=== PATIENT | female | born 1945 | race Caucasian/White ===

== ENCOUNTER 2018-01-07 18:17 | Inpatient (IN) | payer MEDICARE ==
[~2018-01-07] VITALS: Ht 175.3 cm; Wt 55.8 kg
[2018-01-07] MEDS ORDERED: MAGNESIUM HYDROXIDE 30 ML LIQUID UDC PO PRN (18:30)
[2018-01-07] MEDS ORDERED: Z GUARD REMEDY PASTE 57 GM TUBE TOP PRN (18:30)
--- NOTE | 2018-01-07 18:52 | NUR ---
PT RECEIVED [facility]. PT VITALS STABLE. ALL PHOTOS TAKEN. ENDORSING TO HEADER OPERATOR NURSE FOR THE ASSESSMENTS. CALLED MICHAEL FROM [facility] ABOUT MED RECON. STILL WAITING. MRSA SWAB DONE AND SENT. WILL ENDORSE TO HEADER OPERATOR NURSE.
[2018-01-07 19:30] VITALS: BP 105/58
--- NOTE | 2018-01-07 19:30 | NUR ---
PT IN ROOM ALERT AWAKE IN NO ACUTE DISTRESS. ABLE TO FOLLOW SIMPLE COMMANDS AND MAKE NEEDS KNOWN. DENIES PAIN FOR NOW BUT STATES SOME SLIGHT DISCOMFORT WHEN MOVING. SURGICAL DRESSING SITE TO RIGHT HIP INTACT WITH NO ACTIVE BLEEDING OR S/S OF INFECTION. PT'S OXYGEN SAT NOTED 94% BUT STATES NO SOB. ASSESSMENT COMPLETED AND PT MADE AWARE OF PLAN OF CARE. REMINDED PT TO REQUEST FOR ASSISTANCE WHEN NEEDED. WILL CONTINUE TO MONITOR. PERSONAL BELONGINGS DOCUMENTED. HOME MEDICATIONS IBUPROFEN AND PEPTO BISOMOL TO BE SENT TO PHARMACIST. DR SANTOYO MADE AWARE OF PRN PAIN MEDICATION NEEDED.
[2018-01-07] MEDS: OXYCODONE/APAP 5-325 MG TABLET PO PRN (23:17)
--- NOTE | 2018-01-07 23:30 | NUR ---
PT C/O OF SLIGHT SOB UPON EXERTION. OXYGEN SET AT 2L/MIN ADMINISTERED. WILL CONTINUE TO MONITOR.
--- NOTE | 2018-01-08 06:00 | NUR ---
PT IN ROOM ABLE TO SLEEP WITHOUT DIFFICULTY SINCE RECEIVING PERCOCET. AWARE TO INFORM STAFF FOR ASSISTANCE WHEN NEEDED. NO DRAINAGE NOTED TO AFFECTED SURGICAL SITE. WILL CONTINUE TO MONITOR. CALL LIGHT WITHIN REACH.
[2018-01-08 06:42] LABS: BASOPHILS % (AUTO) 0.3 % (0.0-2.0); EOSINOPHILS # (AUTO) 0.1 K/uL (0.0-0.7); LYMPHOCYTES # (AUTO) 1.3 K/uL (20.0-40.0); MONOCYTES # (AUTO) 0.9 K/uL (2.0-10.0)
[2018-01-08 06:46] LABS: EOSINOPHILS % (AUTO) 0.8 % (0.0-7.0); HEMATOCRIT 21.4 % (31.2-41.9); LYMPHOCYTES % (AUTO) 18.7 % (20.5-51.5); MEAN CORPUSCULAR HEMOGLOBIN 33.4 uug (24.7-32.8); MEAN CORPUSCULAR HGB CONC 35 g/dL (32.3-35.6); MEAN CORPUSCULAR VOLUME 96.3 fL (75.5-95.3); NEUTROPHILS # (AUTO) 4.9 K/uL (1.8-8.9); NEUTROPHILS % (AUTO) 68.2 % (38.5-71.5); PLATELET COUNT (AUTO) 136 K/uL (179-408); WHITE BLOOD COUNT (AUTO) 7.2 K/uL (3.8-11.8)
[2018-01-08 07:00] LABS: RED BLOOD CELL COUNT(AUTO) 2.22 MIL/uL (3.63-4.92)
[2018-01-08 07:03] LABS: HEMOGLOBIN 7.4 g/dL (10.9-14.3)
[2018-01-08 07:10] LABS: ALANINE AMINOTRANSFERASE 16 U/L (14-59); ALKALINE PHOSPHATASE 40 U/L (50-136); ASPARTATE AMINOTRANSFERASE 25 U/L (15-37); BILIRUBIN,TOTAL 0.5 mg/dL (0.2-1.0); CARBON DIOXIDE 27 mmol/L (21-32); CHLORIDE 102 mmol/L (98-107); CREATININE 1.2 mg/dL (0.6-1.3); GLUCOSE 96 mg/dL (74-106); MAGNESIUM 1.9 mg/dL (1.8-2.4); PHOSPHOROUS 4.2 mg/dL (2.5-4.9); POTASSIUM 4.4 mmol/L (3.5-5.1); TOTAL PROTEIN, SERUM 5.7 g/dL (6.4-8.2); UREA NITROGEN, BLOOD 34 mg/dL (7-18)
[2018-01-08 08:00] VITALS: BP 82/46
--- NOTE | 2018-01-08 08:14 | NUR ---
CRITICAL LAB CALLED IN FOLLOWS HEMOGLOBIN NOTED AT 7.4 AND HEMATOCRIT NOTED AT 21.4..MD CHARLES NOTIFIED WITH NO NEW ORDERS
[2018-01-08 09:00] VITALS: BP 89/54
--- NOTE | 2018-01-08 09:00 | NUR ---
Rechecked pt's BP: 89/54 80. Pt asymptomatic. Pt in bed awake. Mihaela breakfast. Denies pain at this time. Dr. Waters here and relayed pt's Hgb of 7.2 and BP. Per MD, pt is status post surgery and decreased Hgb is expected due to blood loss during surgery. No new orders at this time. Will continue to monitor pt.
[2018-01-08] MEDS: OXYCODONE/APAP 5-325 MG TABLET PO PRN (10:34)
--- NOTE | 2018-01-08 14:00 | NUR ---
BP: 89/56 79. Pt in no acute distress noted. Denies pain. Denies SOB. Pt sitting up in w/c. Just finished with PT. Mihaela first treatment well. Per Mesha, PT patient is clear to ambulate to bathroom with nursing. Will endorse to all staff.
[2018-01-08] MEDS ORDERED: ALBUTEROL SULFATE 1.25 MG/3 ML NEBU NEB PRN (14:45)
--- NOTE | 2018-01-08 18:30 | NUR ---
Spoke with Dr. Gross to relay pt's low BP trend and labs. Pt stated "no new orders, look at my notes". No notes from Dr. Gross in system noted. No physical progress notes in pt's chart either. Charge nurse aware.
[2018-01-08 21:02] VITALS: BP 108/60
--- NOTE | 2018-01-09 06:00 | NUR ---
pt slept all night appears tired, denies any pain or discomfort,no bm. vss,afebrile.will continue to monitor.
[2018-01-09 07:06] VITALS: BP 113/63
[2018-01-09 07:37] LABS: BASOPHILS % (AUTO) 0.6 % (0.0-2.0); EOSINOPHILS # (AUTO) 0.1 K/uL (0.0-0.7); EOSINOPHILS % (AUTO) 1.7 % (0.0-7.0); HEMATOCRIT 23.5 % (31.2-41.9); HEMOGLOBIN 8.2 g/dL (10.9-14.3); LYMPHOCYTES # (AUTO) 1.6 K/uL (20.0-40.0); LYMPHOCYTES % (AUTO) 24.2 % (20.5-51.5); MEAN CORPUSCULAR HEMOGLOBIN 33.5 uug (24.7-32.8); MEAN CORPUSCULAR HGB CONC 35 g/dL (32.3-35.6); MEAN CORPUSCULAR VOLUME 96.5 fL (75.5-95.3); MONOCYTES % (AUTO) 14.2 % (0.0-11.0); NEUTROPHILS % (AUTO) 59.3 % (38.5-71.5); WHITE BLOOD COUNT (AUTO) 6.8 K/uL (3.8-11.8)
[2018-01-09 07:40] LABS: CARBON DIOXIDE 27 mmol/L (21-32); CHLORIDE 102 mmol/L (98-107); CREATININE 1.1 mg/dL (0.6-1.3); GLUCOSE 109 mg/dL (74-106); POTASSIUM 4.7 mmol/L (3.5-5.1); UREA NITROGEN, BLOOD 26 mg/dL (7-18)
[2018-01-09 07:43] LABS: PLATELET COUNT (AUTO) 212 K/uL (179-408); RED BLOOD CELL COUNT(AUTO) 2.44 MIL/uL (3.63-4.92)
[2018-01-09] MEDS: CHOLECALCIFEROL 1,000 UNIT TABLET PO SCH (09:08)
--- NOTE | 2018-01-09 09:10 | NUR ---
PATIENT NOTED SITTING UP IN WHEELCHAIR FOR BREAKFAST, COMPLAINS THAT SITTING UP IN WHEELCHAIR IS MAKING HER NAUSEOUS, PLACED IN BED AT THIS TIME, DENIES PAIN, NO SIGNS OF DISTRESS NOTED, CALL LIGHT IN REACH, BED LOCKED AND IN LOWEST POSITION, AM MEDICATIONS CRUSHED AND GIVEN WITH APPLE SAUCE, ALL NEEDS MET AT THIS TIME
[2018-01-09] MEDS: RIVAROXABAN 10 MG TABLET PO SCH (17:30)
[2018-01-09] MEDS: ACETAMINOPHEN 325 MG TABLET PO PRN (19:30)
[2018-01-09 21:44] VITALS: BP 103/68
--- NOTE | 2018-01-09 21:54 | NUR ---
[id number] confused and disoriented. fall precautions maintained. needs attended. no acute distress noted. will monitor patient. Right hip dressing clean dry and intact. incontinent of urine. kept clean and dry. vital signs and recorded.
--- NOTE | 2018-01-10 05:29 | NUR ---
quiet night. slept well. no acute distress noted. kept comfortable. right hip dressing clean dry and intact. needs attended. incontinent of urine x2 kept clean and dry. no complaints presented during shift. fall precautions maintained. siderails up for safety.
[2018-01-10 07:23] VITALS: BP 117/62
--- NOTE | 2018-01-10 08:09 | NUR ---
received report from night nurse. patient stable upon initial assessment, asleep in bed with no s/s distress or pain. VSS. will continue to monitor.
[2018-01-10] MEDS: CHOLECALCIFEROL 1,000 UNIT TABLET PO SCH (09:49)
[2018-01-10] MEDS: ACETAMINOPHEN 325 MG TABLET PO PRN (09:49)
--- NOTE | 2018-01-10 11:15 | NUR ---
I agree Addendum: 01/10/18 at 1116 by NORMA MOSS OT Amended: Links added.
--- NOTE | 2018-01-10 15:00 | NUR ---
Yard Worker: Biopsychosocial Assessment SW met with patient at bedside to assess for needs and provide support. Patient is a 72-year-old woman. Patient fell at home and broke her hip, requiring a saul to be put in. Patient was admitted to ARU due to functional impairment and gait dysfunction. Mental Status: Patient appeared to be alert and oriented x4 during interview. She presented in a euphoric and optimistic mood, stating "no matter what, you're getting better. It's a matter of patience." Patient has been in ARU since January 07, 2018. Per patient chart, patient has a history of smoking and occasional cannabis use. Patient is pleasant and cooperative. Support System: Patient reported she lives at home alone. Patient stated she has neighbors that can check in on her when she returns home. She stated she has friends and that her family lives in [place] and [place]. Goals: Patient asked for a list of referrals for caregiving. She stated she is financially okay and willing to pay for a good caregiver. Interventions: SW engaged in active listening. SW provided emotional support and counseling. SW provided patient with caregiving referrals. SW will encourage patient to comply with rehab goals. SW will provide referrals for substance use and smoking cessation.
[2018-01-10] MEDS: RIVAROXABAN 10 MG TABLET PO SCH (18:06)
--- NOTE | 2018-01-10 19:23 | NUR ---
patient stable this shift. no s/s distress. BM current. pain managed well. will endorse to retail shift leader
[2018-01-10 20:30] VITALS: BP 112/72
--- NOTE | 2018-01-10 21:07 | NUR ---
alert and oriented x3 with periods of confusion at times. needs attended. right hip dressing clean dry and intact. no acute distress noted. incontinent of bowel and bladder. kept clean and dry. will monitor patient. fall precautions maintained. siderails up for safety.
--- NOTE | 2018-01-11 05:13 | NUR ---
uneventful night. making needs known. slept at long intervals. no complaints presented during shift. denies any pain nor any discomfort. safety precautions maintained.
--- NOTE | 2018-01-11 07:45 | NUR ---
Patient noted resting in bed, no complaints of pain at this time, no signs of distress noted, call light in reach, bed locked and in lowest position, x 2 bed rails, all needs met at this time
[2018-01-11 08:00] VITALS: BP 125/69
[2018-01-11] MEDS: CHOLECALCIFEROL 1,000 UNIT TABLET PO SCH (08:48)
[2018-01-11] MEDS: ACETAMINOPHEN 325 MG TABLET PO PRN (09:26)
[2018-01-11] MEDS: HYDROCODONE/APAP 5-325MG TABLET PO PRN (14:38)
[2018-01-11 15:41] VITALS: BP 91/58
[2018-01-11] MEDS: RIVAROXABAN 10 MG TABLET PO SCH (17:55)
--- NOTE | 2018-01-11 19:30 | NUR ---
Received patient in bed. Alert and verbally responsive. Able to make needs known. Denies any pain and discomfort at this time. No acute distress. No SOB. Kept clean and dry. Right hip dressing is clean and intact. All needs attended to promptly. Call light within reach. Will continue to monitor.
[2018-01-11 20:39] VITALS: BP 109/67
[2018-01-12 05:32] VITALS: BP 107/72
[2018-01-12] MEDS: ACETAMINOPHEN 325 MG TABLET PO PRN (06:09)
--- NOTE | 2018-01-12 06:37 | NUR ---
Patient slept comfortably throughout the night. No c/o pain and discomfort. No acute distress. No SOB. Kept clean and dry. All needs attended to promptly. Call light within reach. Will continue to monitor.
[2018-01-12 08:31] VITALS: BP 103/61
[2018-01-12] MEDS: CHOLECALCIFEROL 1,000 UNIT TABLET PO SCH (08:55)
[2018-01-12 16:00] VITALS: BP 113/61
--- NOTE | 2018-01-12 17:00 | NUR ---
Doctor Renato notified of bright red per rectum during ary care today. MD verbalizes understanding of this finding. Made rounds to patient room. Discussing other important findings.
[2018-01-12] MEDS: RIVAROXABAN 10 MG TABLET PO SCH (18:06)
--- NOTE | 2018-01-12 19:29 | NUR ---
Patient rounds to bedside for handoff report with Praneeth Downey RN.
--- NOTE | 2018-01-12 19:30 | NUR ---
Received report from day shift nurse. Patient stable at start of shift with no acute distress noted. Pertinent assessment completed. Vital signs within range at start of shift. Noted with right hip incision with steri strips. No s/s of infection or inflammation noted at surgical site. Call light within reach of patient. Noted with rectal hemorrhoids per MD with new order for Anusol Suppository. Will carry out order & continue to monitor.
[2018-01-12 19:51] VITALS: BP 108/67
[2018-01-12] MEDS: SENNOSIDES 1 TABLET PO SCH (20:29)
[2018-01-12] MEDS: HYDROCODONE/APAP 5-325MG TABLET PO PRN (20:29)
[2018-01-12] MEDS: HYDROCORTISONE RECTAL SUPP 25 MG EACH RC SCH (21:19)
[2018-01-13 05:36] VITALS: BP 112/69
[2018-01-13] MEDS: HYDROCORTISONE RECTAL SUPP 25 MG EACH RC SCH ×3 (06:14→21:15)
[2018-01-13 08:32] VITALS: BP 102/59
[2018-01-13] MEDS: CHOLECALCIFEROL 1,000 UNIT TABLET PO SCH (09:12)
[2018-01-13 16:08] VITALS: BP 105/57
[2018-01-13] MEDS: RIVAROXABAN 10 MG TABLET PO SCH (16:52)
--- NOTE | 2018-01-13 16:53 | NUR ---
XARELTO NOT GIVEN PER MD WE ARE TO HOLD IF THE HEMORRHOID CONTINUES TO BLEED. BLEEDING NOTED IN TOILET AND DIAPER WHEN UP TP BATHROOM FOR BOWEL MOVEMENT
--- NOTE | 2018-01-13 19:30 | NUR ---
Patient lying comfortably at start of shift with no acute distress noted. Pertinent assessment completed. Vital signs within range. Right hip incision is clean & dry with no s/s of infection or inflammation. Dressing is intact. Per day shift RN, patient still noted with small amounts of bleeding from hemorrhoids. Xarelto was held in AM. No current active bleeding upon assessment. Call light within reach. Will continue to monitor through shift.
[2018-01-13 20:13] VITALS: BP 118/65
[2018-01-13] MEDS: SENNOSIDES 1 TABLET PO SCH (21:15)
[2018-01-13] MEDS: HYDROCODONE/APAP 5-325MG TABLET PO PRN (21:17)
[2018-01-14] MEDS: HYDROCORTISONE RECTAL SUPP 25 MG EACH RC SCH ×3 (06:22→21:11)
[2018-01-14 06:25] VITALS: BP 119/67
--- NOTE | 2018-01-14 08:22 | NUR ---
I agree Addendum: 01/14/18 at 0823 by NORMA MOSS OT Amended: Links added.
--- NOTE | 2018-01-14 08:24 | NUR ---
I agree Addendum: 01/14/18 at 0824 by NORMA MOSS OT Amended: Links added.
[2018-01-14 08:26] VITALS: BP 125/72
--- NOTE | 2018-01-14 09:00 | NUR ---
Patient noted resting in bed watching tv, complaints of pain 5/10 in right hip, NORCO given, no signs of distress noted, call light in reach, bed locked and in lowest position, took all AM medications without trouble
[2018-01-14] MEDS: CHOLECALCIFEROL 1,000 UNIT TABLET PO SCH (09:29)
[2018-01-14] MEDS: HYDROCODONE/APAP 5-325MG TABLET PO PRN ×2 (09:29→21:19)
[2018-01-14 16:12] VITALS: BP 127/68
[2018-01-14] MEDS: RIVAROXABAN 10 MG TABLET PO SCH (18:16)
[2018-01-14 19:30] VITALS: BP 142/68
--- NOTE | 2018-01-14 19:30 | NUR ---
Received report from day shift RN. Patient stable at start of shift with no acute distress noted. Vital signs within range. No bleeding noted in rectum from hemorrhoids upon assessment. Right hip incision is clean & dry with no s/s of infection or inflammation. Dressing is intact. Bed in low position & locked. Call light within reach. Will continue to monitor through shift.
[2018-01-14] MEDS: SENNOSIDES 1 TABLET PO SCH (21:00)
--- NOTE | 2018-01-14 21:12 | NUR ---
Patient refusing Senokot dose. Educated patient. Explained risks & benefits. Will continue to monitor.
[2018-01-15 05:18] VITALS: BP 119/62
[2018-01-15] MEDS ORDERED: ALENDRONATE SODIUM 70 MG TABLET PO SCH (06:00)
[2018-01-15] MEDS: HYDROCORTISONE RECTAL SUPP 25 MG EACH RC SCH ×3 (06:14→21:29)
--- NOTE | 2018-01-15 06:51 | NUR ---
Patient stating feelings of concern about discharge & where she is going after. Patient explaining that she doesn't feel ready to go home & be on her own. Will endorse to day shift nurse for patient to talk with manager social services. patient stable through shift. All needs attended to promptly. No signs of bleeding noted from hemorrhoids. Medications given per MD order. Safety measures implemented. Call light within reach. Will endorse to day shift nurse.
[2018-01-15 07:46] VITALS: BP 137/65
--- NOTE | 2018-01-15 08:16 | NUR ---
patient noted resting in bed, no complaints of pain at this time, no signs of distress, x 2 bed rails, call light in reach, bed locked and in lowest position
[2018-01-15] MEDS: HYDROCODONE/APAP 5-325MG TABLET PO PRN (08:44)
[2018-01-15] MEDS: CHOLECALCIFEROL 1,000 UNIT TABLET PO SCH (08:44)
[2018-01-15] MEDS: RIVAROXABAN 10 MG TABLET PO SCH (17:14)
--- NOTE | 2018-01-15 19:40 | NUR ---
Received pt in bed, AAO x 3 watching television. No acute distress noted. Denies pain or discomfort at this time. Verbally responsive and able to make needs known. All safety measures and fall precautions maintained. Call light and all personal belongings within reach. Will continue to monitor.
[2018-01-15 20:19] VITALS: BP 109/57
[2018-01-15] MEDS: SENNOSIDES 1 TABLET PO SCH (21:00)
[2018-01-15] MEDS: ACETAMINOPHEN 325 MG TABLET PO PRN (23:16)
[2018-01-16 05:15] VITALS: BP 115/70
[2018-01-16] MEDS: HYDROCORTISONE RECTAL SUPP 25 MG EACH RC SCH ×3 (06:25→21:03)
[2018-01-16 07:31] LABS: BASOPHILS # (AUTO) 0.2 K/uL (0.0-8.0); BASOPHILS % (AUTO) 1.8 % (0.0-2.0); EOSINOPHILS # (AUTO) 0.1 K/uL (0.0-0.7); EOSINOPHILS % (AUTO) 1.6 % (0.0-7.0); HEMATOCRIT 23.2 % (31.2-41.9); HEMOGLOBIN 7.9 g/dL (10.9-14.3); LYMPHOCYTES # (AUTO) 1.8 K/uL (20.0-40.0); LYMPHOCYTES % (AUTO) 21.3 % (20.5-51.5); MEAN CORPUSCULAR HGB CONC 34 g/dL (32.3-35.6); MEAN CORPUSCULAR VOLUME 99.3 fL (75.5-95.3); MONOCYTES # (AUTO) 0.8 K/uL (2.0-10.0); MONOCYTES % (AUTO) 9.3 % (0.0-11.0); NEUTROPHILS # (AUTO) 5.6 K/uL (1.8-8.9); PLATELET COUNT (AUTO) 372 K/uL (179-408); WHITE BLOOD COUNT (AUTO) 8.4 K/uL (3.8-11.8)
[2018-01-16 07:32] LABS: RED BLOOD CELL COUNT(AUTO) 2.33 MIL/uL (3.63-4.92)
--- NOTE | 2018-01-16 08:00 | NUR ---
Received patient awake, verbally responsive, coherent, not in any form of acute distress. She denies any pain or discomfort at this time. Call light placed within reach. Assisted to her needs.
[2018-01-16 08:27] VITALS: BP 132/57
[2018-01-16] MEDS: CHOLECALCIFEROL 1,000 UNIT TABLET PO SCH (09:58)
[2018-01-16 16:41] VITALS: BP 103/55
[2018-01-16] MEDS: RIVAROXABAN 10 MG TABLET PO SCH (17:53)
--- NOTE | 2018-01-16 19:40 | NUR ---
Received pt in bed, AAO x 3 watching television. No acute distress noted. Verbalizing concern about discharge but already spoke with case management regarding discharge. Verbally responsive and able to make needs known. Denies pain or discomfort at this time. All safety measures and fall precautions maintained. Call light and all personal belongings within reach. Will continue to monitor.
[2018-01-16 20:12] VITALS: BP 109/63
[2018-01-16] MEDS: ACETAMINOPHEN 325 MG TABLET PO PRN (23:17)
[2018-01-17 05:26] VITALS: BP 122/50
[2018-01-17] MEDS: HYDROCORTISONE RECTAL SUPP 25 MG EACH RC SCH ×3 (06:34→21:35)
[2018-01-17] MEDS: ACETAMINOPHEN 325 MG TABLET PO PRN ×4 (06:34→21:41)
[2018-01-17 07:23] LABS: IRON, SERUM 59 ug/dL (50-175)
[2018-01-17 07:37] LABS: FERRITIN 297 ng/mL (8-252)
[2018-01-17 08:00] VITALS: BP 131/60
[2018-01-17] MEDS: CHOLECALCIFEROL 1,000 UNIT TABLET PO SCH (08:35)
--- NOTE | 2018-01-17 15:25 | NUR ---
PATIENT STATED THAT SHE DOES NOT HAVE ANY MORE HEMORRHOIDS, AND SHE HAVE NEVER HAD THEM BEFORE. SHE PREFERRED TO HAVE THE CREAM INSTEAD OF THE SUPPOSITORY. NOTIFIED DR. GATICA'S STUDENTS ON PATIENT'S REQUEST. WILL CONTINUE MONITORING.
[2018-01-17 16:00] VITALS: BP 142/78
[2018-01-17] MEDS: RIVAROXABAN 10 MG TABLET PO SCH (17:35)
--- NOTE | 2018-01-17 19:40 | NUR ---
Received pt in bed, AAO x 3 watching television. No acute distress noted. Verbally responsive and able to make needs known. Denies pain or discomfort at this time. All safety measures and fall precautions maintained. Call light and all personal belongings within reach. Will continue to monitor.
[2018-01-17 20:06] VITALS: BP 123/63
[2018-01-18] MEDS: HYDROCORTISONE RECTAL SUPP 25 MG EACH RC SCH (06:29)
[2018-01-18 07:55] VITALS: BP 133/69
--- NOTE | 2018-01-18 08:05 | NUR ---
Patient noted sitting up in bed reading a book, denies pain at this time, no signs of distress, call light in reach, bed locked and in lowest position, x2 bed rails noted, bed alarm in place
[2018-01-18] MEDS: CHOLECALCIFEROL 1,000 UNIT TABLET PO SCH (09:06)
--- NOTE | 2018-01-18 15:37 | NUR ---
Patient discharged to [facility] via [facility] ambulance service, no complaints of pain at this time, no signs of distress noted, exit care provided, pictures of sacrum and right hip taken and placed in chart, discharge instructions given, refused both flu and pneumococcal, vitals stable, ID band taken off, credit cards and medication from retrieved from safe and given to patient.
== END 2018-01-18 15:30 | disposition home health service (06) | DRG 560 ==
PROVIDERS: ADMIT Physical Medicine & Rehabilitation Pain Medicine; ATTEND Physical Medicine & Rehabilitation Pain Medicine
DX: M80.051D Age-related osteoporosis with current pathological fracture, right femur, subsequent encounter for fracture with routine healing (principal); E46 Unspecified protein-calorie malnutrition; D50.0 Iron deficiency anemia secondary to blood loss (chronic); D63.8 Anemia in other chronic diseases classified elsewhere; F17.210 Nicotine dependence, cigarettes, uncomplicated; J42 Unspecified chronic bronchitis; M81.0 Age-related osteoporosis without current pathological fracture; R26.9 Unspecified abnormalities of gait and mobility; K59.03 Drug induced constipation; T40.605A Adverse effect of unspecified narcotics, initial encounter; Y92.230 Patient room in hospital as the place of occurrence of the external cause; Z80.49 Family history of malignant neoplasm of other genital organs; Z82.49 Family history of ischemic heart disease and other diseases of the circulatory system; R53.1 Weakness
CPT/HCPCS: 36415; 73502; 83550; 83735; 84100; 85025; 92523; 92526; 92610; 97110; 97112; 97116; 97165; 97530; 97535; A4663; J8499